=== PATIENT | male | born 1965 | race Caucasian/White ===

== ENCOUNTER 2020-06-14 22:46 | Emergency (ER) | payer OTHER ==
[2020-06-14 22:52] VITALS: BP 173/112; PULSE 70; RESP 18; TEMP 97.4
[2020-06-14] MEDS ORDERED: amLODIPine 10 MG TAB PO STA (23:36)
--- NOTE | 2020-06-14 23:41 | ED ---
Recheck HPI - General Chief Complaint: Recheck/Abnormal Lab/Rx Stated Complaint: swelling in hands/feet, shortness of breath Time Seen by Provider: 06/14/20 22:56 Source: patient Mode of arrival: ambulatory Limitations: no limitations - History of Present Illness Initial Comments: 54 year-old male patient presents to the emergency department for evaluation of pain and swelling in his hands. States that symptoms started tonight after bowling. Does admit to drinking alcohol. When asked about shortness of breath he states that he is always short of breath due to COPD. Denies any new or worsening symptoms. Denies any cough, congestion, or fever. Denies any swelling in the lower extremities. Patient states he has been out of his blood pressure medication for the last 3 days. States he does not have any more at home. Patient denies any recent rash, chest pain, abdominal pain, nausea, vomiting, diarrhea, constipation, back pain, numbness, tingling, dizziness, weakness, hematuria, dysuria, urinary urgency, urinary frequency, headache, visual changes, or any other complaints. - Related Data Previous Rx's Medication Instructions Recorded HYDROmorphone [Dilaudid] 2 mg PO Q8H PRN #15 tab 08/31/15 amLODIPine [Norvasc] 10 mg PO DAILY #14 tablet 06/14/20 Allergies Allergy/AdvReac Type Severity Reaction Status Date / Time ciprofloxacin [From Cipro] Allergy Hallucinati Verified 06/14/20 22:51 ons ciprofloxacin HCl Allergy Hallucinati Verified 06/14/20 22:51 [From Cipro] ons Review of Systems ROS Statement: Those systems with pertinent positive or pertinent negative responses have been documented in the HPI. ROS Other: All systems not noted in ROS Statement are negative. 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 Vital signs upon presentation are temperature 97.4F, pulse 70, respirations 18, blood pressure 173/112, pulse ox 95% on room air.) Eye exam: Present: normal appearance, PERRL, EOMI. Absent: scleral icterus, conjunctival injection, periorbital swelling ENT exam: Present: normal exam, normal oropharynx, mucous membranes moist Respiratory exam: Present: normal lung sounds bilaterally. Absent: respiratory distress, wheezes, rales, rhonchi, stridor Cardiovascular Exam: Present: regular rate, normal rhythm, normal heart sounds. Absent: systolic murmur, diastolic murmur, rubs, gallop, clicks GI/Abdominal exam: Present: soft, normal bowel sounds. Absent: distended, tenderness, guarding, rebound, rigid Extremities exam: Present: normal inspection, full ROM, normal capillary refill. Absent: tenderness, pedal edema, joint swelling, calf tenderness Back exam: Present: normal inspection Neurological exam: Present: alert, oriented X3, CN II-XII intact Psychiatric exam: Present: normal affect, normal mood Skin exam: Present: warm, dry, intact, normal color. Absent: rash Course Vital Signs 06/14/20 22:47 Temperature 97.4 F L Pulse Rate 70 Respiratory 18 Rate Blood Pressure 173/112 O2 Sat by Pulse 95 Oximetry Medical Decision Making - Medical Decision Making 54 year-old male patient presents to the emergency department for hand pain and swelling. Physical examination reveals normal hand exam. May be trace swelling. Skin is pink, warm, dry. Cap refill less than 3 seconds. Radial pulses are 2+. Patient is moving the hand without difficulty. Patient does seem to be intoxicated. Blood pressure is elevated. He refuses to have chest x-ray performed. He is afebrile. Speaking full sentences without difficulty. Does not appear to be in any respiratory distress. Nephew is here and will be taking him home. He was given a dose of his blood pressure medication. A prescription was sent to the pharmacy for him, he is instructed to obtain new primary care physician as soon as possible. Return parameters discussed in detail. He verbalizes understanding and agrees with this plan. My attending is Dr. Ly. Disposition Clinical Impression: Alcohol intoxication, High blood pressure Disposition: HOME SELF-CARE Condition: Good Instructions (If sedation given, give patient instructions): Alcohol Intoxication (ED), Chronic Hypertension (ED) Additional Instructions: Take your blood pressure medication as directed. Follow up with her primary care physician for recheck in 1-2 days. Return to the emergency department for any new, worsening, or concerning symptoms. Prescriptions: amLODIPine [Norvasc] 10 mg PO DAILY #14 tablet Is patient prescribed a controlled substance at d/c from ED?: No Referrals: None,Stated [Primary Care Provider] - 1-2 days Time of Disposition: 23:41
== END 2020-06-14 23:58 | disposition home or self-care (01) ==
LOC: EC 22:46
DX: F10.129 Alcohol abuse with intoxication, unspecified (principal); I10 Essential (primary) hypertension; M79.642 Pain in left hand; M79.641 Pain in right hand; M79.89 Other specified soft tissue disorders; J44.9 Chronic obstructive pulmonary disease, unspecified; F17.200 Nicotine dependence, unspecified, uncomplicated; Y90.9 Presence of alcohol in blood, level not specified
CPT/HCPCS: 99284

== ENCOUNTER 2020-09-04 14:22 | Emergency (ER) | payer OTHER ==
[2020-09-04 14:36] VITALS: BP 166/82; PULSE 82; RESP 20; TEMP 98.1
[2020-09-04] MEDS ORDERED: ACET/COD 300 MG/30 MG STARTER PACK 6 TAB BTL PO STA (15:30)
--- NOTE | 2020-09-04 15:31 | ED ---
Skin/Abscess/FB HPI - General Chief complaint: Skin/Abscess/Foreign Body Stated complaint: R side pain Time Seen by Provider: 09/04/20 15:00 Source: patient Mode of arrival: ambulatory Limitations: no limitations - History of Present Illness Initial comments: 55-year-old male presents to the emergency department chief complaint of skin pain. Patient reports this started approximately one week ago and he continues to be painful. Patient reports it feels like his previous case of shingles but there is no associated rash. States his most recent complications shingles was about 20 years ago. States the pain was initially on both sides around the skin on the hips and has been alternating back and forth. States not is mostly located along the right side and it radiates to the left. It does cross the midline. She he denies any new onset rashes. Denies any fevers or chills. Denies any other nausea vomiting diarrhea or abdominal pain. States it is tender whenever he is touching the skin. States she has to wear his pants lowered in usual so it does not rub against the skin. - Related Data Previous Rx's Medication Instructions Recorded HYDROmorphone [Dilaudid] 2 mg PO Q8H PRN #15 tab 08/31/15 amLODIPine [Norvasc] 10 mg PO DAILY #14 tablet 06/14/20 methylPREDNISolone [Medrol Dose 4 mg PO DIRECTED #1 pack 09/04/20 Pack] Allergies Allergy/AdvReac Type Severity Reaction Status Date / Time ciprofloxacin [From Cipro] Allergy Hallucinati Verified 09/04/20 14:36 ons ciprofloxacin HCl Allergy Hallucinati Verified 09/04/20 14:36 [From Cipro] ons Review of Systems ROS Statement: Those systems with pertinent positive or pertinent negative responses have been documented in the HPI. ROS Other: All systems not noted in ROS Statement are negative. 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 Absent: tenderness, lymphadenopathy Respiratory exam: Present: normal lung sounds bilaterally. Absent: respiratory distress, wheezes, rales, rhonchi, stridor Cardiovascular Exam: Present: regular rate, normal rhythm, normal heart sounds. Absent: systolic murmur GI/Abdominal exam: Present: soft. Absent: distended, tenderness, guarding, doni ound Extremities exam: Present: normal inspection, full ROM, normal capillary refill. Absent: tenderness Back exam: Present: normal inspection, full ROM. Absent: tenderness Neurological exam: Present: alert, oriented X3, normal gait Psychiatric exam: Present: normal affect, normal mood Skin exam: Present: warm, dry, intact, normal color, other (Skin hypersensitivity along the belt line. It does cross the midline. No signs of a rash.) Course Vital Signs 09/04/20 14:33 Temperature 98.1 F Pulse Rate 82 Respiratory 20 Rate Blood Pressure 166/82 O2 Sat by Pulse 100 Oximetry Medical Decision Making - Medical Decision Making 55-year-old male presents to the emergency department with a chief complaint of skin pain. On physical examination, Skin hypersensitivity along the belt line. It does cross the midline. No signs of a rash. No other abdominal tenderness. No other signs or symptoms. I will give the patient Tylenol 3 for symptomatically relief. I will also given a Medrol dosepak. Pleasant to follow-up with dermatology. Strict return parameters were thoroughly discussed patient was standing agreeable. Case discussed physician. Disposition Clinical Impression: Cutaneous hypersensitivity Disposition: HOME SELF-CARE Condition: Stable Instructions (If sedation given, give patient instructions): Capsaicin (On the skin), Paresthesia (ED) Additional Instructions: Follow with store management trainee. He prescribed medication as directed. Return to emergency department if symptoms worsen. Prescriptions: methylPREDNISolone [Medrol Dose Pack] 4 mg PO DIRECTED #1 pack Is patient prescribed a controlled substance at d/c from ED?: No Referrals: None,Stated [Primary Care Provider] - 1-2 days Joe Casey MD [STAFF PHYSICIAN] - 1-2 days Comfort Casey MD [STAFF PHYSICIAN] - 1-2 days Time of Disposition: 15:30
== END 2020-09-04 15:45 | disposition home or self-care (01) ==
LOC: EC 14:22
DX: T78.40XA Allergy, unspecified, initial encounter (principal); F17.200 Nicotine dependence, unspecified, uncomplicated; Z88.1 Allergy status to other antibiotic agents
CPT/HCPCS: 99282